=== PATIENT | male | born 1960 | race Two or more races ===

== ENCOUNTER 2019-05-08 13:24 | Outpatient (CLI) | payer MEDICARE ==
[~2019-05-08] VITALS: Ht 180.3 cm; Wt 93.0 kg
[2019-05-08] MEDS ORDERED: LITHIUM CARBON300 MG ORAL (14:15)
--- NOTE | 2019-05-08 14:23 | GI Initial Consult Note ---
History of Present Illness General Date patient seen: May 08, 2019 Time patient seen: 14:12 Reason for Consultation: Esophageal candidas Present Illness HPI This is a 59-year-old male patient presents today with complaint of oral thrush and possible esophageal candidiasis. Symptomatically, the patient states he has occasional nausea, but excessive phlegm production, complains of nasal congestion with generalized fatigue and bilateral lower abdominal versus pelvic pain. Patient states he has a history of colon cancer diagnosed back in 2004 status post colectomy. He states that his last colonoscopy was approximately 3 years ago in which there were no remarkable findings. The patient's abdomen is soft, nontender, nondistended in all quadrants. Noted that the patient does have an umbilical hernia. Denies any unintentional weight loss or changes in dietary habits. No signs of abuse or neglect. Patient is not fall risk. Home Meds Reported Medications [place] Carbonate* (LITHIUM*) 300 Mg Capsule, 300 MG ORAL EVERY 8 HOURS, CAP 0 Refills 05/08/19 Med list reviewed/reconciled: Yes Allergies: Coded Allergies: No Known Allergies (Unverified , 05/08/19) Patient History History Provided By: Patient [facility] Narrative Nephrolithiasis Colon cancer diagnosed in 2004 Past surgical history Partial colectomy in 2004 Pertinent Family History: none Social History: Denies: smoking, alcohol use, drug use, other Review of Systems All Other Systems: negative except mentioned in HPI Physical Exam Temperature 97.8 Blood pressure 110/78 Pulse 47 99 room air Height 5'11 Weight 205 Sp02 EP Interpretation: reviewed, normal General Appearance: well appearing, no apparent distress, alert Head: normocephalic EENT: PERRL/EOMI, normal ENT inspection, other Neck: supple, other - white film on tongue. No noted white patches on back of throat. Respiratory: normal breath sounds, no respiratory distress Cardiovascular: normal rate Gastrointestinal: normal inspection, non tender, soft, normal bowel sounds, non -distended, other - See HPI Rectal: deferred Genitourinary: deferred Musculoskeletal: normal inspection, back normal Neurologic: normal inspection, alert, oriented x3, responsive Psychiatric: normal inspection, judgement/insight normal, memory normal Skin: normal inspection, normal color, no rash, warm/dry, palpation normal, well hydrated Lymphatic: normal inspection, no adenopathy GI: Plan Problems: (1) Oral thrush (2) History of colon cancer (3) Abdominal pain (4) Esophageal candidiasis (5) Umbilical hernia Plan Nystatin oral suspension prescribed We will consider endoscopy to evaluate esophageal Analy if symptoms do not improve Patient reports history of colonoscopy within 3 years, stated no remarkable findings. Will consider colonoscopy on next visit given history of colon cancer. Abdominal pelvis CT ordered to evaluate abdominal pain Labs to be drawn return to clinic RTC in [address] Malagon. Thank you for this patient referral, we will follow. The patient was seen and examined at bedside and all new and available data was reviewed in the patients chart. I agree with the above findings, impression and plan. (Patient seen earlier today. Signature stamp does not reflect patient encounter time.). - MD Deborah HarrisBanner Behavioral Health HospitalReed LERNER May 08, 2019 14:23
[2019-05-08 14:41] VITALS: BP 110/78
== END 2019-05-08 15:24 | disposition home or self-care (01) ==
LOC: PAN 13:24
DX: B37.0 Candidal stomatitis (principal); Z85.038 Personal history of other malignant neoplasm of large intestine; R10.9 Unspecified abdominal pain; B37.81 Candidal esophagitis; K42.9 Umbilical hernia without obstruction or gangrene

== ENCOUNTER → 2019-05-15 | Outpatient (CLI) | payer MEDICARE ==
[~2019-05-15] MED LIST: LITHIUM CARBON300 MG ORAL
[2019-05-15 14:01] LABS: BASOPHILS % (AUTO) 1.1 % (0.0-2.0); EOSINOPHILS % (AUTO) 8.9 % (0.0-3.0); HEMATOCRIT 44.7 % (42.0-52.0); HEMOGLOBIN 14.6 G/DL (14.2-18.0); LYMPHOCYTES % (AUTO) 16.8 % (20.0-45.0); MEAN CORPUSCULAR VOLUME 85 FL (80-99); MONOCYTES % (AUTO) 8.8 % (1.0-10.0); NEUTROPHILS % (AUTO) 64.3 % (45.0-75.0); PLATELET COUNT 219 K/UL (150-450); RED BLOOD COUNT 5.28 M/UL (4.70-6.10); RED CELL DISTRIBUTION WIDTH 11.4 % (11.6-14.8); WHITE BLOOD COUNT 6.1 K/UL (4.8-10.8)
[2019-05-15 14:22] LABS: ALANINE AMINOTRANSFERASE 15 U/L (12-78); ALBUMIN 4.4 G/DL (3.4-5.0); ALBUMIN/GLOBULIN RATIO 1.7 (1.0-2.7); ALKALINE PHOSPHATASE 73 U/L (46-116); ANION GAP 7 mmol/L (5-15); ASPARTATE AMINO TRANSFERASE 19 U/L (15-37); BLOOD UREA NITROGEN 10 mg/dL (7-18); CALCIUM 9.6 MG/DL (8.5-10.1); CARBON DIOXIDE 28 MMOL/L (21-32); CHLORIDE 105 MMOL/L (98-107); CREATININE 1.5 MG/DL (0.55-1.30); POTASSIUM 4.6 MMOL/L (3.5-5.1); SODIUM 140 MMOL/L (136-145)
[2019-05-15 14:32] LABS: BILIRUBIN,DIRECT 0.3 MG/DL (0.0-0.3)
== END | disposition home or self-care (01) ==
LOC: LAB 13:30
DX: R10.9 Unspecified abdominal pain (principal); C18.9 Malignant neoplasm of colon, unspecified; R05 Cough
CPT/HCPCS: 36415; 80053; 82248; 82378; 85025; 85610; 85730